=== PATIENT | male | born 1945 | race Caucasian/White ===

== ENCOUNTER 2021-07-29 16:04 | Observation (INO) | payer MEDICARE ==
[2021-07-29] MEDS ORDERED: Ondansetron ODT 4 MG TAB PO PRN (18:41)
[2021-07-29] MEDS ORDERED: Acetaminophen 325 MG TAB PO PRN (18:41)
[2021-07-29] MEDS ORDERED: guaiFENesin 200 MG TAB PO PRN (19:47)
[2021-07-29] MEDS ORDERED: Famotidine 20 MG TAB PO SCH (20:00)
[2021-07-29 20:05] VITALS: BMI 30.4
[2021-07-29 20:39] LABS: Troponin I Less than 0.010 ng/mL (< 0.028)
[2021-07-29] MEDS ORDERED: Cepastat Lozenges 1 LOZ PO PRN (23:38)
[2021-07-29] MEDS ORDERED: Chloraseptic Spray 180 ml Bottle PO PRN (23:39)
[2021-07-30 05:07] LABS: Hemoglobin A1c 5.6 % (4.0-6.0)
[2021-07-30 05:21] LABS: Cardiac Risk 4.2 (Less than 4.5)
[2021-07-30 07:59] VITALS: BP 132/62; TEMP 96.4
[2021-07-30] MEDS ORDERED: Fish Oil 1,000 MG CAP PO SCH (09:00)
[2021-07-30] MEDS ORDERED: Famotidine 20 MG TAB PO SCH (09:00)
[2021-07-30] MEDS ORDERED: Aspirin 81 mg Enteric Coated Tablet PO SCH (09:00)
[2021-07-30] MEDS ORDERED: Enoxaparin Sodium 40 MG/0.4 ML SYRINGE SC SCH (09:00)
[2021-07-30] MEDS ORDERED: Multivit, Therapeutic 1 TAB PO SCH (09:00)
[2021-07-30] MEDS ORDERED: Cholecalciferol 1,000 UNITS (25 MCG) TAB PO SCH (09:00)
== END 2021-07-30 11:29 | disposition home or self-care (01) ==
LOC: 2SW 16:04 → OBSVTOIN 18:47 → INTOOBSV 18:47
PROVIDERS: ADMIT Student in an Organized Health Care Education/Training Program; ATTEND Student in an Organized Health Care Education/Training Program
DX: R07.89 Other chest pain (principal); U07.1 COVID-19; E78.5 Hyperlipidemia, unspecified; I73.9 Peripheral vascular disease, unspecified; Z91.018 Allergy to other foods; Z91.02 Food additives allergy status
CPT/HCPCS: 36415; 80061; 83036; 84443; 96372; G0378; J1650

== ENCOUNTER 2021-08-01 15:10 | Observation (INO) | payer MEDICARE ==
[2021-08-01 18:09] VITALS: BMI 33.5
[2021-08-01] MEDS ORDERED: Ondansetron PF 4 MG/2 ML Vial IVP PRN ×2 (18:30→19:01)
[2021-08-01] MEDS ORDERED: Acetaminophen 325 MG TAB PO PRN ×2 (18:30→19:01)
[2021-08-01] MEDS ORDERED: Ondansetron ODT 4 MG TAB SL PRN (18:30)
[2021-08-01] MEDS ORDERED: Ondansetron ODT 4 MG TAB PO PRN (19:01)
[2021-08-01] MEDS ORDERED: Enoxaparin Sodium 40 MG/0.4 ML SYRINGE SC SCH (19:15)
[2021-08-01] MEDS: Benzonatate 100 MG CAP PO PRN (20:22)
[2021-08-02 05:26] VITALS: TEMP 97.8
[2021-08-02] MEDS: Benzonatate 100 MG CAP PO PRN (08:26)
[2021-08-02] MEDS ORDERED: Cholecalciferol 1,000 UNITS (25 MCG) TAB PO SCH (09:00)
[2021-08-02] MEDS ORDERED: Multivit, Therapeutic 1 TAB PO SCH (09:00)
[2021-08-02] MEDS ORDERED: Enoxaparin Sodium 40 MG/0.4 ML SYRINGE SC SCH (09:00)
[2021-08-02] MEDS ORDERED: Fish Oil 1,000 MG CAP PO SCH (09:00)
[2021-08-02 12:21] VITALS: BP 131/78
== END 2021-08-02 14:49 | disposition home or self-care (01) ==
LOC: T4-B 15:10
PROVIDERS: ADMIT Student in an Organized Health Care Education/Training Program; ATTEND Student in an Organized Health Care Education/Training Program
DX: U07.1 COVID-19 (principal); J12.82 Pneumonia due to coronavirus disease 2019; E78.5 Hyperlipidemia, unspecified; I73.9 Peripheral vascular disease, unspecified; Z79.899 Other long term (current) drug therapy; Z91.02 Food additives allergy status; Z91.018 Allergy to other foods; Z28.310 Unvaccinated for COVID-19; Z28.9 Immunization not carried out for unspecified reason
CPT/HCPCS: 96372 ×2; G0378 ×2; J1650

== ENCOUNTER 2022-06-04 10:09 | Outpatient (CLI) | payer MEDICARE ==
[2022-06-04 11:25] LABS: #Basophils 0.1 10x3/uL (0.0-0.2); #Eosinphils 0.2 10x3/uL (0.0-0.5); #Monocytes 0.5 10x3/uL (0.0-1.1); #Neutrophils 4.4 10x3/uL (1.5-8.4); %Basophils 0.7 % (0.0-2.0); %Eosinophils 2.6 % (0.0-6.0); %Lymphocytes 28.6 % (18.0-47.0); %Monocytes 7.4 % (0.0-10.0); %Neutrophils 60.4 % (40.0-75.0); Mean Corpuscular HGB CONC 33.1 g/dL (32.0-36.0); Mean Corpuscular Hemoglobin 30.1 pg (27.0-33.0); Mean Platelet Volume 9.5 fl (7.4-10.4); Platelet Count 246 10x3/uL (150-450); RBC Distribution Width 13.2 % (11.5-14.5); Red Blood Cell (RBC) Count 4.98 10x6/uL (4.32-5.72); White Blood Cell (WBC) Count 7.2 10x3/uL (3.5-10.5)
== END 2022-06-04 10:10 | disposition home or self-care (01) ==
LOC: LABBT 10:09
PROVIDERS: ATTEND Orthopaedic Surgery Hand Surgery
DX: Z01.818 Encounter for other preprocedural examination (principal); M19.041 Primary osteoarthritis, right hand; M25.842 Other specified joint disorders, left hand
CPT/HCPCS: 85025; 93005; 93010

== ENCOUNTER 2022-06-07 11:35 | Day surgery (SDC) | payer MEDICARE ==
[2022-06-03 12:48] VITALS: BMI 33.5
[2022-06-07] MEDS ORDERED: fentaNYL 50 mcg/mL 1 mL Vial ONE (13:08)
[2022-06-07] MEDS ORDERED: Bupivacaine PF 0.5% 30 ML VIAL ONE (13:23)
[2022-06-07] MEDS ORDERED: Betamet Acet/Betamet Na Ph 30 MG/5 ML VIAL ONE (13:23)
[2022-06-07] MEDS ORDERED: Bacitracin Zinc Ointment 30 gm TUBE ONE (13:23)
[2022-06-07] MEDS ORDERED: CEFAZOLIN 2 GM VIAL ONE (13:58)
[2022-06-07] MEDS ORDERED: Sodium Chloride 0.9% 100 ML ONE (13:58)
[2022-06-07] MEDS ORDERED: Ondansetron PF 4 MG/2 ML Vial ONE (14:29)
[2022-06-07] MEDS ORDERED: ePHEDrine Sulfate 50 MG/10 ML VIAL ONE (14:29)
[2022-06-07] MEDS ORDERED: Lidocaine 1% PF 5 ML VIAL ONE (14:29)
[2022-06-07] MEDS ORDERED: Dexamethasone 20 MG/5 ML VIAL ONE (14:29)
[2022-06-07] MEDS ORDERED: PROPOFOL 200 MG/20 ML VIAL ONE (14:29)
[2022-06-07] MEDS ORDERED: Ketorolac Tromethamine 30 MG/ML VIAL ONE (16:05)
== END 2022-06-07 17:15 | disposition home or self-care (01) ==
LOC: SDC 11:35
PROVIDERS: ATTEND Orthopaedic Surgery Hand Surgery
PROC: 0RBW0ZZ Excision of Right Finger Phalangeal Joint, Open Approach (ICD-10-PCS; principal; 2022-06-07)
PROC: 0PBT0ZZ Excision of Right Finger Phalanx, Open Approach (ICD-10-PCS; 2022-06-07)
DX: M25.741 Osteophyte, right hand (principal); M67.441 Ganglion, right hand; M65.841 Other synovitis and tenosynovitis, right hand; M15.2 Bouchard's nodes (with arthropathy); Z79.82 Long term (current) use of aspirin; Z79.899 Other long term (current) drug therapy; Z91.018 Allergy to other foods; Z96.82 Presence of neurostimulator
CPT/HCPCS: 26160; 26235; 73140; J3010; 88304; J0702; J1100; J1885; J2405; J2704; J3490; S0020

== ENCOUNTER 2024-10-17 15:47 | Emergency (ER) | payer MEDICARE, OTHER ==
[2024-10-17] MEDS ORDERED: Boostrix 0.5 ML (Tdap) VIAL (>/=7 yrs of age) ONE (16:20)
[2024-10-17] MEDS ORDERED: Acetaminophen 500 MG TAB ONE (16:20)
[2024-10-17] MEDS ORDERED: Bacitracin 1 PK ONE (18:46)
[2024-10-17] MEDS ORDERED: Ibuprofen 200 MG TAB ONE (18:46)
== END 2024-10-17 19:00 | disposition home or self-care (01) ==
LOC: ERS 15:47
DX: S00.01XA Abrasion of scalp, initial encounter (principal); M47.816 Spondylosis without myelopathy or radiculopathy, lumbar region; I10 Essential (primary) hypertension; J45.909 Unspecified asthma, uncomplicated; Z23 Encounter for immunization; Z79.51 Long term (current) use of inhaled steroids; Z79.899 Other long term (current) drug therapy; W01.10XA Fall on same level from slipping, tripping and stumbling with subsequent striking against unspecified object, initial encounter
CPT/HCPCS: 70450; 72100; 72125; 90471; 90715

== ENCOUNTER 2024-12-18 12:57 | Outpatient (CLI) | payer MEDICARE, OTHER | END 2024-12-18 12:58 | disposition home or self-care (01) | LOC: RAD 12:57 | PROVIDERS: ATTEND Internal Medicine | DX: R06.00 Dyspnea, unspecified (principal); J98.4 Other disorders of lung; I51.7 Cardiomegaly | CPT/HCPCS: 71046 ==